=== PATIENT | female | born 1960 | race Caucasian/White ===

== ENCOUNTER 2025-07-01 14:01 | Outpatient (CLI) | payer MEDICARE, BC | END 2025-07-01 14:02 | disposition home or self-care (01) | LOC: CSHWCC 14:01 | PROVIDERS: ATTEND Nurse Practitioner Family | DX: L89.45 Pressure ulcer of contiguous site of back, buttock and hip, unstageable (principal) | CPT/HCPCS: 11042; G0463; 99213 ==

== ENCOUNTER 2025-07-07 15:46 | Outpatient (CLI) | payer MEDICARE, BC | END 2025-07-07 15:47 | disposition home or self-care (01) | LOC: CSHWCC 15:46 | PROVIDERS: ATTEND Nurse Practitioner Family | DX: L89.45 Pressure ulcer of contiguous site of back, buttock and hip, unstageable (principal) | CPT/HCPCS: 11042; G0463; 99212 ==

== ENCOUNTER 2025-07-29 14:45 | Outpatient (CLI) | payer MEDICARE, BC | END 2025-07-29 14:46 | disposition home or self-care (01) | LOC: CSHWCC 14:45 | PROVIDERS: ATTEND Nurse Practitioner Family | DX: L89.45 Pressure ulcer of contiguous site of back, buttock and hip, unstageable (principal); M40.204 Unspecified kyphosis, thoracic region; E44.1 Mild protein-calorie malnutrition; J84.10 Pulmonary fibrosis, unspecified | CPT/HCPCS: 11042 ==

== ENCOUNTER 2025-08-04 14:54 | Outpatient (CLI) | payer MEDICARE, BC | END 2025-08-04 14:55 | disposition home or self-care (01) | LOC: CSHWCC 14:54 | PROVIDERS: ATTEND Nurse Practitioner Family | DX: L89.45 Pressure ulcer of contiguous site of back, buttock and hip, unstageable (principal); M40.204 Unspecified kyphosis, thoracic region; E44.1 Mild protein-calorie malnutrition; J84.10 Pulmonary fibrosis, unspecified | CPT/HCPCS: 11042; 97605; 99212; G0463 ==

== ENCOUNTER 2025-08-18 14:32 | Outpatient (CLI) | payer MEDICARE, BC | END 2025-08-18 14:33 | disposition home or self-care (01) | LOC: CSHWCC 14:32 | PROVIDERS: ATTEND Nurse Practitioner Family | DX: L89.45 Pressure ulcer of contiguous site of back, buttock and hip, unstageable (principal); M40.204 Unspecified kyphosis, thoracic region; J84.10 Pulmonary fibrosis, unspecified; E44.1 Mild protein-calorie malnutrition | CPT/HCPCS: 11042; 97605 ==

== ENCOUNTER 2025-08-26 14:20 | Outpatient (CLI) | payer MEDICARE, BC | END 2025-08-26 14:21 | disposition home or self-care (01) | LOC: CSHWCC 14:20 | PROVIDERS: ATTEND Nurse Practitioner Family | DX: L89.44 Pressure ulcer of contiguous site of back, buttock and hip, stage 4 (principal); M40.204 Unspecified kyphosis, thoracic region; E44.1 Mild protein-calorie malnutrition; J84.10 Pulmonary fibrosis, unspecified | CPT/HCPCS: 11042; 97605 ==

== ENCOUNTER 2025-09-03 14:11 | Outpatient (CLI) | payer MEDICARE, BC | END 2025-09-03 14:12 | disposition home or self-care (01) | LOC: CSHWCC 14:11 | PROVIDERS: ATTEND Nurse Practitioner Family | DX: L89.44 Pressure ulcer of contiguous site of back, buttock and hip, stage 4 (principal); M40.204 Unspecified kyphosis, thoracic region; E44.1 Mild protein-calorie malnutrition; J84.10 Pulmonary fibrosis, unspecified | CPT/HCPCS: 11042; 97605 ==

== ENCOUNTER 2025-09-09 11:03 | Outpatient (CLI) | payer MEDICARE, BC | END 2025-09-09 11:04 | disposition home or self-care (01) | LOC: CSHWCC 11:03 | PROVIDERS: ATTEND Nurse Practitioner Family | DX: L89.44 Pressure ulcer of contiguous site of back, buttock and hip, stage 4 (principal); M40.204 Unspecified kyphosis, thoracic region; E44.1 Mild protein-calorie malnutrition; J84.10 Pulmonary fibrosis, unspecified | CPT/HCPCS: 11042; 97605 ==

== ENCOUNTER 2025-09-22 14:34 | Outpatient (CLI) | payer MEDICARE, BC | END 2025-09-22 14:35 | disposition home or self-care (01) | LOC: CSHWCC 14:34 | PROVIDERS: ATTEND Nurse Practitioner Family | DX: L89.44 Pressure ulcer of contiguous site of back, buttock and hip, stage 4 (principal); M40.204 Unspecified kyphosis, thoracic region; E44.1 Mild protein-calorie malnutrition; J84.10 Pulmonary fibrosis, unspecified | CPT/HCPCS: 11042; 97605 ==